=== PATIENT | male | born 1950 | race Caucasian/White ===

== ENCOUNTER 2024-12-27 19:30 | Inpatient (IN) | payer OTHER ==
[~2024-12-27] VITALS: Ht 177.8 cm; Wt 74.6 kg
[2024-12-27 20:09] VITALS: BP 143/82
[2024-12-27 20:50] LABS: BASO % 0.6 % (0.0-1.0); EOS # 0.1 10*3/uL (0.0-0.4); EOS % 1.7 % (1.0-4.0); HEMATOCRIT 43.5 % (42.0-52.0); MEAN CELL VOLUME 93.8 fl (80.0-94.0); MEAN CORPUSCULAR HGB 31.5 pg (27.0-31.0); MEAN CORPUSCULAR HGB CONC 33.6 g/dl (33.0-37.0); MEAN PLATELET VOLUME 9.9 fl (9.6-12.3); MONO # 0.8 10*3/uL (0.1-1.0); MONO % 11.7 % (3.0-9.0); NEUT # 3.9 10*3/uL (2.3-7.9); NEUT % 61.1 % (47.0-73.0); PLATELET COUNT AUTOMATED 186 10*3/uL (130-400); RED BLOOD COUNT 4.64 10*6/uL (4.50-5.90); RED CELL DISTRI WIDTH 13.2 % (0-14.5); WHITE BLOOD COUNT 6.4 10*3/uL (4.8-10.8)
[2024-12-27 21:12] LABS: ALKALINE PHOSPHATASE 80 U/L (46-116); BUN 15 mg/dl (9-23); CHLORIDE 102 mmol/L (98-107); CPK 76 U/L (34-171); ETHYL ALCOHOL < 3.0 mg/dl (<3); POTASSIUM 3.9 mmol/L (3.4-5.1); SGPT/ALT 7 U/L (5-49); TOTAL PROTEIN 6.8 gm/dL (6.0-8.0)
[2024-12-27 22:49] LABS: BILIRUBIN Negative (Negative); BLOOD Negative (Negative); CLARITY Clear (Clear); COLOR Yellow (Yellow); GLUCOSE Negative (Negative); KETONE Negative (Negative); LEUKO ESTERASE Negative (Negative); NITRITE Negative (Negative); SPECIFIC GRAVITY 1.015 (1.001-1.030)
[2024-12-27 22:57] LABS: URINE AMPHETAMINES Negative (1000ng/ml); URINE BARBITURATES Negative (200ng/ml); URINE BENZODIAZEPINES Negative (200ng/ml); URINE CANNABINOIDS (THC) Negative (50ng/ml); URINE COCAINE Negative (300ng/ml); URINE METHADONE Negative (300ng/ml); URINE OPIATES Negative (300ng/ml); URINE PHENCYCLIDINE Negative (25ng/ml)
[2024-12-27 23:22] LABS: WBC 0-2 wbc/hpf (0-5)
[2024-12-28] MEDS ORDERED: NORVASC5 MG PO (00:51)
[2024-12-28] MEDS ORDERED: ELIQUIS5 M1 PO (00:52)
[2024-12-28] MEDS ORDERED: ARICEPT10 M1 PO (00:53)
[2024-12-28] MEDS ORDERED: LOSARTAN POTAS100 M1 PO (00:53)
[2024-12-28] MEDS ORDERED: METFORMIN HCL500 M2 PO (00:58)
[2024-12-28] MEDS ORDERED: PROSCAR5 M1 PO (00:59)
[2024-12-28] MEDS ORDERED: METOPROLOL SUCC25 M2 PO (00:59)
[2024-12-28] MEDS ORDERED: VITAMIN D3125 MCG PO (01:00)
[2024-12-28] MEDS ORDERED: LORazepam 1 MG TAB PO PRN (01:05)
[2024-12-28] MEDS ORDERED: Ziprasidone Mesylate 20 MG VIAL IM PRN (01:05)
[2024-12-28] MEDS ORDERED: hydrOXYzine hydrochloride 50 MG/ML VIAL IM PRN (01:05)
[2024-12-28] MEDS ORDERED: MG-AL HYDROXIDE/SIMETICONE 30 ML UDC PO PRN (01:15)
[2024-12-28] MEDS ORDERED: Magnesium Hydroxide 30 ML UDC PO PRN (01:15)
[2024-12-28] MEDS ORDERED: ACETAMINOPHEN 325 MG TAB PO PRN (01:15)
[2024-12-28] MEDS ORDERED: Menthol/Zinc Oxide 4 GM THIN T PRN (01:20)
[2024-12-28 06:33] LABS: BASO # 0.1 10*3/uL (0.0-0.1); BASO % 0.7 % (0.0-1.0); EOS # 0.1 10*3/uL (0.0-0.4); EOS % 1.7 % (1.0-4.0); MEAN CELL VOLUME 93.8 fl (80.0-94.0); MEAN CORPUSCULAR HGB 31.9 pg (27.0-31.0); MEAN PLATELET VOLUME 10.1 fl (9.6-12.3); MONO # 0.8 10*3/uL (0.1-1.0); MONO % 11.4 % (3.0-9.0); NEUT # 3.8 10*3/uL (2.3-7.9); PLATELET COUNT AUTOMATED 188 10*3/uL (130-400); RED BLOOD COUNT 4.48 10*6/uL (4.50-5.90); RED CELL DISTRI WIDTH 13.2 % (0-14.5); WHITE BLOOD COUNT 6.9 10*3/uL (4.8-10.8)
[2024-12-28 07:05] LABS: ALKALINE PHOSPHATASE 75 U/L (46-116); BUN 14 mg/dl (9-23); CHLORIDE 102 mmol/L (98-107); CHOLESTEROL 155 mg/dL (<200); LDL CHOLESTEROL 83 mg/dL (9-159); POTASSIUM 3.9 mmol/L (3.4-5.1); SGPT/ALT 8 U/L (5-49); TOTAL PROTEIN 6.3 gm/dL (6.0-8.0); TRIGLYCERIDES 114 mg/dl (<150)
[2024-12-28 07:57] LABS: VITAMIN D, 25-HYDROXY 70.1 ng/mL (30-100)
[2024-12-28 08:00] VITALS: BP 118/79
[2024-12-28] MEDS ORDERED: amLODIPine besylate 5 MG TAB PO SCH (09:00)
[2024-12-28] MEDS ORDERED: APIXABAN 5 MG TAB PO SCH (09:00)
[2024-12-28] MEDS ORDERED: Losartan Potassium 50 MG TAB PO SCH (09:00)
[2024-12-28] MEDS ORDERED: Cholecalciferol 5,000 IU CAP (125 MCG) PO SCH (09:00)
[2024-12-28] MEDS ORDERED: FINASTERIDE 5 MG TAB PO SCH (09:00)
[2024-12-28] MEDS ORDERED: DIVALPROEX (DR) 250 MG TAB PO SCH (09:00)
[2024-12-28] MEDS ORDERED: Rivastigmine Tartrate 4.6 MG/24 HR PATCH T SCH (09:00)
[2024-12-28 20:00] VITALS: BP 134/68
[2024-12-28] MEDS ORDERED: Memantine Hydrochloride 5 MG TAB PO SCH (21:00)
[2024-12-28] MEDS ORDERED: METOPROLOL SUCCINATE XR 25 MG TAB PO SCH (21:00)
[2024-12-29 09:00] VITALS: BP 95/51
[2024-12-29 20:00] VITALS: BP 128/73
[2024-12-29] MEDS ORDERED: Memantine Hydrochloride 5 MG TAB PO SCH (21:00)
[2024-12-30 08:00] VITALS: BP 106/52
[2024-12-30] MEDS ORDERED: Rivastigmine Tartrate 9.5 MG/24 HR PATCH T SCH (09:00)
[2024-12-30] MEDS ORDERED: LIDOCAINE 1 EA PATCH T SCH (09:00)
[2024-12-30 20:00] VITALS: BP 141/72
[2024-12-31 08:00] VITALS: BP 146/80
[2024-12-31 20:00] VITALS: BP 151/71
[2024-12-31] MEDS ORDERED: Memantine Hydrochloride 10 MG TAB PO SCH (21:00)
[2025-01-01 08:04] VITALS: BP 118/63
[2025-01-01] MEDS ORDERED: Memantine Hydrochloride 5 MG TAB PO SCH (09:00)
[2025-01-01] MEDS ORDERED: Memantine Hydrochloride 10 MG TAB PO SCH (09:00)
[2025-01-01] MEDS ORDERED: RIVASTIGMINE 13.3 MG/24 HR TDM T SCH (09:00)
[2025-01-01 20:00] VITALS: BP 133/56
[2025-01-02 08:00] VITALS: BP 126/78
[2025-01-02] MEDS ORDERED: RIVASTIGMINE1 EAC2 T (09:41)
[2025-01-02] MEDS ORDERED: Lidoderm 5% Patch T (09:41)
[2025-01-02] MEDS ORDERED: DIVALPROEX SOD250 MG PO (09:41)
[2025-01-02] MEDS ORDERED: MEMANTINE HCL10 MG PO (09:41)
== END 2025-01-02 11:52 | DRG 883 ==
LOC: ED 19:30 → EDHOLD 23:14 → 3N 23:14
PROVIDERS: Nurse Practitioner Family; ADMIT Psychiatry & Neurology Psychiatry; ATTEND Psychiatry & Neurology Psychiatry
PROC: GZHZZZZ Group Psychotherapy (ICD-10-PCS; principal; 2024-12-28)
PROC: GZ51ZZZ Individual Psychotherapy, Behavioral (ICD-10-PCS; 2024-12-28)
DX: F63.81 Intermittent explosive disorder (principal); F33.2 Major depressive disorder, recurrent severe without psychotic features; F63.9 Impulse disorder, unspecified; E11.9 Type 2 diabetes mellitus without complications; I10 Essential (primary) hypertension; E78.2 Mixed hyperlipidemia; F17.210 Nicotine dependence, cigarettes, uncomplicated; J43.9 Emphysema, unspecified; G30.9 Alzheimer's disease, unspecified; Z20.822 Contact with and (suspected) exposure to COVID-19; F02.80 Dementia in other diseases classified elsewhere, unspecified severity, without behavioral disturbance, psychotic disturbance, mood disturbance, and anxiety; Z82.49 Family history of ischemic heart disease and other diseases of the circulatory system; Z79.899 Other long term (current) drug therapy